=== PATIENT | male | born 1955 | race Caucasian/White ===

== ENCOUNTER 2017-08-14 15:28 | Emergency (ER) | payer OTHER ==
[2017-08-14] MEDS ORDERED: NS 0.9% 1000 ML* 1,000 ML IV ONE (15:41)
[2017-08-14] MEDS ORDERED: Ondansetron INJ* 2 MG/ML VIAL IV ONE ×2 (15:41→19:56)
[2017-08-14] MEDS ORDERED: IMIPRAMINE 25 MG PO ONE (15:56)
[2017-08-14] MEDS ORDERED: Lidocaine 2% VISCOUS* 15 ML UDC PO ONE (15:57)
[2017-08-14] MEDS ORDERED: Al Hydrox/Mg Hydrox/Simet LIQ* 30 ML UDC PO ONE (15:57)
[2017-08-14 16:02] LABS: Hematocrit 46 % (42-52); Hemoglobin 15.5 g/dl (14.0-18.0); Mean Corpuscular HGB Conc 34 g/dl (31-36); Mean Corpuscular Hemoglobin 30 pg (27-31); Mean Corpuscular Volume 90 fL (80-94); Mean Platelet Volume 10 um3 (7.4-10.4); Red Blood Count 5.14 10^6/ul (4.0-5.4); Red Cell Distribution Width 13 % (10.5-15); White Blood Count 12.3 10^3/ul (3.5-10.8)
[2017-08-14 16:18] LABS: Albumin 4.7 g/dL (3.2-5.2); C Reactive Protein 6.98 mg/L (< 5.00); Calcium 9.7 mg/dL (8.6-10.3); EGFR African American 96.7 (>60); EGFR Non-African American 75.2 (>60); Globulin 2.4 g/dL (2-4); Potassium 3.9 mmol/L (3.5-5.0); Total Bilirubin 4.3 mg/dL (0.2-1.0); Total Protein 7.1 g/dL (6.4-8.9)
[2017-08-14] MEDS ORDERED: Iohexol 300* (CONTRAST) 10 ML SDV IV ONE (19:07)
--- NOTE | 2017-08-14 19:15 | RAD ---
HISTORY: Right upper quadrant and epigastric pain. COMPARISONS: None TECHNIQUE: Multiple transverse and longitudinal ultrasound images were obtained of the right upper quadrant. Evaluation is extremely limited due to bowel gas and the patient's inability to take a deep breath or lay flat according to the relief pilot. FINDINGS: LIVER: The visualized portions of the liver are normal in echogenicity. Normal hepatic and portal venous blood flow is duplicated with color flow imaging. There is no gross intrahepatic biliary duct dilatation. GALLBLADDER AND EXTRAHEPATIC BILIARY DUCT: The relief pilot reports a negative sonographic Dumont sign. There are hyper echogenic mobile foci in the gallbladder lumen most consistent with stones. There is no pericholecystic fluid or gallbladder wall thickening. The common bile duct was not directly visualized. PANCREAS: Unable to visualize. RIGHT KIDNEY: Limited visualization of the right kidney shows no acute abnormalities. AORTA AND IVC: Unable to visualize. IMPRESSION: 1. EXTREMELY LIMITED ULTRASOUND OF THE RIGHT UPPER QUADRANT DUE TO THE PATIENT'S INABILITY TO RESULT OR LAY FLAT. 2. CHOLELITHIASIS WITHOUT DEFINITE SIGNS OF ACUTE INFLAMMATORY CATALAN
[2017-08-14 19:40] LABS: Urine Bacteria Absent (Absent); Urine Bilirubin Negative (Negative); Urine Glucose Negative (Negative); Urine Nitrite Negative (Negative)
[2017-08-14] MEDS ORDERED: Morphine INJ* 4 MG/ML 1 ML CARPUJECT IM ONE (19:56)
[2017-08-14] MEDS ORDERED: Morphine INJ* 4 MG/ML 1 ML CARPUJECT IV ONE ×2 (20:06→23:10)
--- NOTE | 2017-08-14 21:17 | RAD ---
CLINICAL HISTORY: Epigastric pain COMPARISON: None TECHNIQUE: Contrast enhanced CT examination of the abdomen and pelvis from the lung bases through the initial tuberosities. The patient received 99 mL Omnipaque 300 intravenously prior to imaging.The patient received oral contrast as well prior to imaging. FINDINGS: VISUALIZED LUNG BASES: There are hypoventilatory changes at the bilateral lung bases. Otherwise the visualized lung bases are grossly clear. There is no pleural effusion. ABDOMEN AND PELVIS: In the right lobe of the liver (image 11 of 98) there is a 1.8 cm mostly low attenuation lesion with questionable dependent peripheral enhancement. The liver is otherwise homogenous in attenuation and the surface is smooth. The spleen and adrenal glands are grossly normal in appearance. There is mild infiltration of the peripancreatic fat (for example axial image 29). Along the dependent lateral border of the peripancreatic fat there is a small fluid collection (image 30). There are at least 2 stones in the gallbladder lumen measuring up to 2 and 2.6 cm in greatest dimension respectively. There is no definite gallbladder wall thickening. The common bile duct measures up to 8 mm in short axis diameter. The kidneys are normal in appearance without focal mass, calcification or signs of hydronephrosis. The small and large bowel are not distended. The appendix is not discretely visualized, but there are no focal inflammatory changes in the right lower quadrant characteristic of appendicitis. There is no gross retroperitoneal or mesenteric lymphadenopathy. The pelvic viscera is normal in appearance. The abdominal aorta and iliac arteries are normal in course and diameter. Degenerative changes include multilevel loss of intervertebral disc height involving the lower thoracic and lumbar spine.There are no sinister bone lesions. IMPRESSION: 1. There is mild infiltration of the peripancreatic fat surrounding the body and tail the pancreas with trace fluid in the dependent peripancreatic fascia. Please correlate to signs and symptoms of pancreatitis. 2. Cholelithiasis with a top normal common bile duct, but no definite focal inflammatory changes of the gallbladder within the limitations of CT examination. If there is clinical concern for biliary obstruction further characterization could BE made with HIDA scan. 3. Additional chronic and degenerative changes described in the body the report.
--- NOTE | 2017-08-14 22:27 | ED ---
Abril Howard Nilda, scribed for Sergio Guallpa MD on 08/14/17 at 1907 . Progress - Progress Note Progress Note: This patient was signed out by Dr. Ireland, pending US Abd and CT Abd. US Abd, per radiologist, reveals: 1. EXTREMELY LIMITED ULTRASOUND OF THE RIGHT UPPER QUADRANT DUE TO THE PATIENT'S INABILITY TO RESULT OR LAY FLAT. 2. CHOLELITHIASIS WITHOUT DEFINITE SIGNS OF ACUTE INFLAMMATORY CATALAN. ED Physician reviewed this report and agrees. CT Abd, per radiologist, reveals: 1. There is mild infiltration of the peripancreatic fat surrounding the body and tail the pancreas with trace fluid in the dependent peripancreatic fascia. Please correlate to signs and symptoms of pancreatitis. 2. Cholelithiasis with a top normal common bile duct, but no definite focal inflammatory changes of the gallbladder within the limitations of CT examination. If there is clinical concern for biliary obstruction further characterization could BE made with HIDA scan. 3. Additional chronic and degenerative changes described in the body the report. ED Physician reviewed this report and agrees. [2136] Dr. Mendoza (hospitalist) who notes that there are no ERCP services until next week. [2137] re-eval: discussed CT and lab blood work findings with patient who most likely has gallstone pancreatitis. Pt needs ERCP which is not available at this location. ED Physician discuss plan to transfer to another facility. Pt understands and is agreeable with this plan. [2155] Dr. Collier ([facility]) accepts pt for transfer. Pt is stable and will be transferred to [facility] with a Dx of gallstone pancreatitis. Course/Dx - Diagnoses Provider Diagnoses: Acute pancreatitis The documentation as recorded by the Abril gunn Nilda accurately reflects the service I personally performed and the decisions made by Ramu ness Abdul, MD.
[2017-08-14 22:47] VITALS: BP 173/80
--- NOTE | 2017-08-15 07:49 | ED ---
Humphrey Howard Angela, scribed for Mitesh Ireland MD on 08/14/17 at 1541 . GI/ HPI - HPI Summary HPI Summary: This pt is a 62 y/o male presenting to [facility] via EMS c/o esophageal spasm for the past 2 months, vomiting now since 0800 today. Pt states he has esophageal spasms for the past 2 months and today he used activated charcoal and drank zi tea for relief. He notes that after 1 hour of taking these, he began to vomit. Pt additionally c/o epigastric abd pain radiating to his sphincter. Pt has had these esophageal spasms 8 times during these past 2 months. PMHx includes periesophagitis. - History of Current Complaint Chief Complaint: EDThroatPain Time Seen by Provider: 08/14/17 15:30 Stated Complaint: EPIGASTRIC PAIN Hx Obtained From: Patient Onset/Duration: Started Weeks Ago, Still Present Timing: Constant, Lasting Weeks Pain Intensity: 8 Location of Pain: Epigastric Associated Signs and Symptoms: Positive: Nausea, Vomiting - Allergy/Home Medications Allergies/Adverse Reactions: Allergies Allergy/AdvReac Type Severity Reaction Status Date / Time No Known Allergies Allergy Verified 10/11/16 13:55 PMH/Surg Hx/FS Hx/Imm Hx Endocrine/Hematology History: Denies: Hx Diabetes Cardiovascular History: Denies: Hx Hypertension, Hx Pacemaker/ICD History: Denies: Hx Renal Disease Sensory History: Denies: Hx Hearing Aid Psychiatric History: Denies: Hx Panic Disorder - Cancer History Cancer Type, 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 Infectious Disease History: No Infectious Disease History: Denies: Traveled Outside the [place] in Last 30 Days - Family History Known Family History: Positive: Cardiac Disease, Other - lung CA - Social History Alcohol Use: None Substance Use Type: Reports: None Smoking Status (MU): Unknown if Ever Smoked Review of Systems Negative: Fever, Chills Eyes: Negative ENT: Negative Cardiovascular: Negative Gastrointestinal: Other - esophageal spasm Positive: Abdominal Pain, Vomiting, Nausea Musculoskeletal: Negative Skin: Negative Neurological: Negative All Other Systems Reviewed And Are Negative: Yes Physical Exam - Summary Physical Exam Summary: VITAL SIGNS: Reviewed. GENERAL: Patient is a well-developed and nourished male who is actively with nausea and vomiting. Patient is not in any acute respiratory distress. HEAD AND FACE: No signs of trauma. No ecchymosis, hematomas or skull depressions. No sinus tenderness. EYES: PERRLA, EOMI x 2, No injected conjunctiva, no nystagmus. EARS: Hearing grossly intact. Ear canals and tympanic membranes are within normal limits. MOUTH: Oropharynx within normal limits. NECK: Supple, trachea is midline, no adenopathy, no JVD, no carotid bruit, no c- spine tenderness, neck with full ROM. CHEST: Symmetric, no tenderness at palpation LUNGS: Clear to auscultation bilaterally. No wheezing or crackles. CVS: Regular rate and rhythm, S1 and S2 present, no murmurs or gallops appreciated. ABDOMEN: Soft, non-tender. No signs of distention. No rebound no guarding, and no masses palpated. Bowel sounds are normal. EXTREMITIES: FROM in all major joints, no edema, no cyanosis or clubbing. NEURO: Alert and oriented x 3. No acute neurological deficits. Speech is normal and follows commands. SKIN: Dry and warm Triage Information Reviewed: Yes Vital Signs On Initial Exam: Initial Vitals Temp Pulse Resp BP Pulse Ox 98.7 F 89 16 177/79 99 08/14/17 15:30 08/14/17 15:30 08/14/17 15:30 08/14/17 15:30 08/14/17 15:30 Vital Signs Reviewed: Yes Diagnostics - Vital Signs Vital Signs Temp Pulse Resp BP Pulse Ox 08/14/17 15:30 98.7 F 89 16 177/79 99 - Laboratory Result Diagrams: 08/14/17 15:53 08/14/17 15:53 Lab Statement: Any lab studies that have been ordered have been reviewed, and results considered in the medical decision making process. - CT Abdomen CT Interpretation Completed By: Radiologist - Abd CT pending official radiology report, please see [facility]. - Ultrasound No standard instances Ultrasound Interpretation Completed By: Radiologist - ABD US pending official radiology report, please see [facility] [facility]. GIGU Course/Dx - Course Assessment/Plan: This pt is a 62 y/o male presenting to [facility] via EMS c/o esophageal spasm for the past 2 months, vomiting now since 0800 today. Pt states he has esophageal spasms for the past 2 months and today he used activated charcoal and drank zi tea for relief. He notes that after 1 hour of taking these, he began to vomit. Pt additionally c/o epigastric abd pain radiating to his sphincter. Pt has had these esophageal spasms 8 times during these past 2 months. PMHx includes periesophagitis. Test results show WBC of 12.3, glucose of 125, total bilirubin of 4.3, AST of 414, ALT of 727, alkaline phosphatase of 179, and lipase if 2587, this is consistent with acute pancreatitis. Therefore, the pt was given IV fluids and Zofran. At this point, he will be placed on an NPO diet. I did order an US of RUQ and CT abdomen and the exams are still pending. At this point I will sign out the pt to Dr. Guallpa to follow up on US and CT results, and further disposition. - Diagnoses Provider Diagnoses: Acute pancreatitis Discharge - Discharge Plan Condition: Stable Disposition: OTHER Discharge Disposition Comment: signed out to Dr. Guallpa, pending dispo, awaiting US and CT results. Referrals: Torsten Rowe MD [Primary Care Provider] - The documentation as recorded by the Humphrey gunn Angela accurately reflects the service I personally performed and the decisions made by me, Mitesh Ireland MD.
== END 2017-08-14 23:26 ==
LOC: ED 15:28
DX: K85.90 Acute pancreatitis without necrosis or infection, unspecified (principal); R10.13 Epigastric pain; R11.2 Nausea with vomiting, unspecified
CPT/HCPCS: 36415; 74177; 76705; 80053; 81003; 81015; 83690; 85025; 86140; 96374; 99284; A9270-GY; J2270; J2405; Q9967